=== PATIENT | male | born 1975 | race Caucasian/White ===

== ENCOUNTER 2017-01-18 19:23 | Emergency (ER) | payer OTHER ==
[~2017-01-18] VITALS: Ht 177.8 cm; Wt 97.5 kg
[2017-01-18 19:37] VITALS: BP 143/102; PULSE 88; RESP 18; TEMP 97.2; O2SAT 99
--- NOTE | 2017-01-18 19:57 | NUR ---
Patient to ER bed 5 to gown for evaluation. Side rails up. Report given to JOE Cisneros.
--- NOTE | 2017-01-18 20:10 | NUR ---
PT. TO ER AAOx4 FOR ANXIETY, STATES THAT HE HAD AN ARGUEMENT WITH HIS ABOUT A COUPLE HOURS AGO, STATES THAT PARTICULAR INCIDENT LEAD TO ANXIETY, STATES HE TOOK TWO .5 MG XANAX UNABLE TO CALM DOWN, TREMORS TO RIGHT ARM, SENIES SOB, DENIES CHEST PAIN
--- NOTE | 2017-01-18 20:29 | NUR ---
ER at bedside examining patient.
[2017-01-18] MEDS ORDERED: DIAZEPAM 5 MG TABLET (VALIUM) PO ONE (20:30)
[2017-01-18 20:39] LABS: BILIRUBIN,URINE NEGATIVE (NEGATIVE); BLOOD, URINE NEGATIVE (NEGATIVE); CLARITY/URINE CLEAR (CLEAR); COLOR,URINE YELLOW (YELLOW); GLUCOSE,URINE NEGATIVE (NEGATIVE); KETONES,URINE NEGATIVE (NEGATIVE); LEUKOCYTE ESTERASE ,URINE NEGATIVE (NEGATIVE); NITRITE, URINE NEGATIVE (NEGATIVE); PROTEIN URINE NEGATIVE (NEGATIVE); UROBILINOGEN,URINE 0.2 (0.2-1.0)
[2017-01-18 20:51] LABS: BARBITURATE, URINE NEGATIVE (NEG <=200); BENZODIAZEPINE, URINE POSITIVE (NEG <=150); METHAMPHETAMINES SCREEN,URINE NEGATIVE (NEG <=500); URINE AMPHETAMINE NEGATIVE (NEG <=500); URINE METHADONE NEGATIVE (NEG <=200)
[2017-01-18 20:52] LABS: CANNABINOID, URINE NEGATIVE (NEG <=50); COCAINE, URINE NEGATIVE (NEG <=150); OPIATE, URINE NEGATIVE (NEG <=100); PHENCYCLIDINE SCREEN,URINE NEGATIVE (NEG <=25); UR TRICYCLIC ANTIDEPRESSANTS NEGATIVE (NEG <=300); URINE OXYCODONE SCREEN NEGATIVE (NEG <=100); URINE PROPOXYPHENE SCREEN NEGATIVE (NEG <=300)
[2017-01-18 21:20] LABS: BASOPHILS # (AUTO) 0.2 K/uL (0.0-0.2); BASOPHILS % (AUTO) 1.8 % (0.0-2.0); EOSINOPHILS # (AUTO) 0.5 K/uL (0.0-0.4); HEMATOCRIT 49.3 % (36-54); HEMOGLOBIN 16.5 g/dL (14.0-18.0); LYMPHOCYTES # (AUTO) 2.5 K/uL (1.0-5.5); LYMPHOCYTES % (AUTO) 25.8 % (20.5-51.5); MEAN CORPUSCULAR HEMOGLOBIN 29 pg (27-31); MEAN CORPUSCULAR HGB CONC 33 % (32-36); MEAN CORPUSCULAR VOLUME 87 fL (79.0-98.0); MONOCYTES # (AUTO) 0.9 K/uL (0.0-1.0); MONOCYTES % (AUTO) 9.2 % (1.7-9.3); NEUTROPHILS # (AUTO) 5.4 K/uL (1.8-7.7); NEUTROPHILS % (AUTO) 58.2 % (40.0-70.0); PLATELET COUNT (AUTO) 176 K/uL (130-430); RED BLOOD CELL COUNT(AUTO) 5.66 MIL/uL (4.2-6.2); RED CELL DISTRIBUTION WIDTH 12.6 % (9.0-15.0); WHITE BLOOD COUNT (AUTO) 9.5 K/uL (4.8-10.8)
[2017-01-18 21:21] LABS: ANION GAP 11 (5-15); CALCIUM 9.2 mg/dL (8.4-11.0); CHLORIDE 103 mmol/L (98-107); CREATININE 1.05 mg/dL (0.55-1.30); GLUCOSE 102 mg/dL (70-99); POTASSIUM 3.5 mmol/L (3.5-5.1); SODIUM SERUM 139 mmol/L (136-145); UREA NITROGEN, BLOOD 17 mg/dL (8-21)
[2017-01-18 21:23] LABS: GFR AFRICAN AMERICAN 101 mL/min (>90)
[2017-01-18 21:30] LABS: ALANINE AMINOTRANSFERASE 56 U/L (12-78); ASPARTATE AMINOTRANSFERASE 25 U/L (10-37); TOTAL BILIRUBIN 0.5 mg/dL (0.0-1.0); TOTAL PROTEIN, SERUM 7.3 g/dL (6.4-8.3)
[2017-01-18 22:30] VITALS: BP 132/87; PULSE 82; RESP 18; TEMP 97.2; O2SAT 99
--- NOTE | 2017-01-18 22:30 | NUR ---
Patient given written and verbal discharge instructions and verbalizes understanding. ER MD Cottrell discussed with patient the results and treatment provided. Patient in stable condition. ID arm band removed. No Rx given. Patient educated on pain management and to follow up with PMD. Pain Scale 0/10 Opportunity for questions provided and answered.
== END 2017-01-18 22:30 | disposition home or self-care (01) ==
LOC: SED 19:23
DX: F41.9 Anxiety disorder, unspecified (principal); F17.200 Nicotine dependence, unspecified, uncomplicated; Z71.6 Tobacco abuse counseling
CPT/HCPCS: 36415; 70450-TC; 71010; 80053; 80307; 81003; 84484; 85025; 93005; 99285